=== PATIENT | female | born 2000 | race Caucasian/White ===

== ENCOUNTER 2022-01-04 09:02 | Emergency (ER) | payer OTHER ==
[~2022-01-04] VITALS: Ht 157.5 cm; Wt 88.0 kg
[2022-01-04] MEDS ORDERED: CYCLOBENZAPRINE 10MG TABLET PO STA (09:24)
[2022-01-04 09:50] LABS: CLARITY URINE CLEAR (CLEAR); COLOR URINE YELLOW (YELLOW); KETONES URINE NEGATIVE (NEGATIVE); LEUKOCYTE ESTERASE URINE NEGATIVE (NEGATIVE); NITRITE URINE NEGATIVE (NEGATIVE); OCCULT BLOOD URINE 3+ (NEGATIVE); PH URINE 5.5 (4.5-8.0); PROTEIN URINE NEGATIVE (NEGATIVE); SPECIFIC GRAVITY URINE 1.022 (1.005-1.030); UROBILINOGEN URINE 0.2 E.U./dL (0.2-1.0)
[2022-01-04] MEDS ORDERED: KETOROLAC 30MG/ML VIAL IM ONE (10:15)
[2022-01-04] MEDS ORDERED: CYCL5TAB MT (10:34)
[2022-01-04 10:49] VITALS: BP 115/64
== END 2022-01-04 10:50 | disposition home or self-care (01) ==
LOC: ER 09:02
DX: S39.012A Strain of muscle, fascia and tendon of lower back, initial encounter (principal); X58.XXXA Exposure to other specified factors, initial encounter; Y93.9 Activity, unspecified; Y92.9 Unspecified place or not applicable; Z88.0 Allergy status to penicillin
CPT/HCPCS: 81003; 81025; 96372; 99283; J1885